=== PATIENT | male | born 2000 ===

== ENCOUNTER 2022-05-25 22:21 | Emergency (ER) | payer SELFPAY ==
[~2022-05-25] VITALS: Ht 190.5 cm; Wt 100.0 kg
[2022-05-25 22:52] VITALS: BP 110/70
== END 2022-05-25 23:10 | disposition left against medical advice (07) ==
LOC: EMS 22:26
DX: R11.10 Vomiting, unspecified (principal); Z53.21 Procedure and treatment not carried out due to patient leaving prior to being seen by health care provider